=== PATIENT | male | born 1960 | race Hispanic/Latino ===

== ENCOUNTER 2022-09-20 02:43 | Emergency (ER) | payer SELFPAY ==
[~2022-09-20] VITALS: Ht 193 cm; Wt 109.8 kg
[~2022-09-20 02:43] MED LIST: Z.0.LEVOTHYROXINE150 PO; Z.0.OMEPRAZOLE40 MG PO
== END 2022-09-20 03:01 | disposition home or self-care (01) ==
LOC: ER 02:50
DX: H93.11 Tinnitus, right ear (principal)
CPT/HCPCS: 99282